=== PATIENT | female | born 1965 | race American Indian/Alaskan Native ===

== ENCOUNTER 2020-07-22 12:59 | Outpatient (CLI) | payer BC | END 2020-07-22 13:00 | disposition critical access hospital (66) | LOC: EMS 12:59 | PROVIDERS: ATTEND Surgery | DX: M54.5 Low back pain (principal) | CPT/HCPCS: A0425; A0429 ==

== ENCOUNTER 2020-07-22 13:18 | Emergency (ER) | payer BC ==
[2020-07-22 14:34] VITALS: BP 178/73
[2020-07-22] MEDS ORDERED: HYDROmorphone 1 MG/ML CARPUJECT IVP STA (14:36)
--- NOTE | 2020-07-22 14:49 | ED Physician Documentation ---
History of Present Illness - Stated complaint Stated Complaint: BACK PAIN - Chief complaint Chief Complaint: Back Pain - History of Present Illness Timing: Prior to arrival - Additonal information Additional information: 55-year-old female presents to the emergency department with persistent right hip pain. She reports that for nearly 2 weeks she has had burning in the posterior hip that radiates down the entire leg. She was seen at [facility] for similar recently and had unremarkable labs and a CT of the abdomen and pelvis that showed a nonincarcerated supraumbilical hernia. In the exam room patient is hyperventilating and panting secondary to the pain. She reports that she was taking baclofen for what they told her was likely sciatica but it has not helped and she is now out of pain medication. She denies any saddle anesthesia, no fevers. No dysuria flank pain or vomiting. Review of Systems Constitutional: reports: Reviewed and negative Eyes: reports: Reviewed and negative Ears: reports: Reviewed and negative Nose: reports: Reviewed and negative Throat: reports: Reviewed and negative Cardiac: reports: Reviewed and negative Respiratory: reports: Reviewed and negative GI: reports: Reviewed and negative : reports: Reviewed and negative Skin: reports: Reviewed and negative Musculoskeletal: reports: Back pain (sharp/burning radiates down right leg) PD PAST MEDICAL HISTORY - Past Medical History Cardiovascular: Hypertension Respiratory: Pneumonia, Other Endocrine/Autoimmune: None GI: Other : None HEENT: None Psych: None Musculoskeletal: None Derm: None - Past Surgical History Past Surgical History: Yes General: Cholecystectomy, Appendectomy, Other /PROBATION COUNSELOR: Tubal ligation - Present Medications Home Medications: Ambulatory Orders Medication Instructions Recorded Confirmed Hydrocodone/Acetaminophen 1 - 2 each PO Q6H PRN #20 tablet 01/04/16 [Hydrocodon-Acetaminophen 5-325] Valacyclovir HCl [Valacyclovir] 1,000 mg PO TID 7 Days tablet 01/04/16 Cyclobenzaprine [Flexeril] 10 mg PO TID PRN #20 tablet 07/22/20 Hydrocodone/Acetaminophen [[place] 1 each PO BID PRN #15 tablet 07/22/20 5-325 Tablet] Ibuprofen [Motrin] 600 mg PO Q6H PRN #30 tab 07/22/20 - Allergies Allergies/Adverse Reactions: Allergies Allergy/AdvReac Type Severity Reaction Status Date / Time codeine AdvReac Mild Nausea Verified 08/30/14 09:55 - Social History Does the pt smoke?: No Smoking Status: Never smoker Does the pt drink ETOH?: No Does the pt have substance abuse?: No - Immunizations Immunizations are current?: Yes - POLST Patient has POLST: No PD ED PE EXPANDED - General General: In Pain, In distress, Other (hyperventilating and panting in triage) - Cardiac Cardiac: Tachy, Regular Rhythm, Radial strong equal, Femoral strong equal, Pedal strong equal - Respiratory Respiratory: Other (hyperventilating/panting in the [place]) - Abdomen Abdomen: Normal Bowel sounds. No: Tender to palpation - Back Back: Straight leg raise + R (Tenderness in the right lower posterior back/hip without crepitus or erythema. Focal tenderness at the SI joint. Positive straight leg exam on right leg. 2+ distal pulse.) Results - Vitals Vitals: Vital Signs - 24 hr 07/22/20 07/22/20 07/22/20 13:20 13:36 14:32 Temperature 36.4 C L 36.4 C L Heart Rate 86 86 62 Respiratory 28 H 28 H 40 H Rate Blood Pressure 141/78 H 141/78 H 178/73 H O2 Saturation 99 99 99 07/22/20 14:57 Temperature Heart Rate Respiratory 18 Rate Blood Pressure O2 Saturation Oxygen O2 Source Room air - Labs Labs: Laboratory Tests 07/22/20 07/22/20 14:45 14:45 WBC 9.5 RBC 4.48 Hgb 14.1 Hct 40.3 MCV 90.0 MCH 31.5 H MCHC 35.0 RDW 12.5 Plt Count 287 MPV 9.7 Neut # (Auto) 7.0 H Lymph # (Auto) 2.1 Faulkner # (Auto) 0.4 Eos # (Auto) 0.0 Baso # (Auto) 0.0 Absolute Nucleated RBC 0.00 Nucleated RBC % 0.0 Sodium 138 Potassium 3.5 Chloride 106 Carbon Dioxide 20 L Anion Gap 12.0 BUN 11 Creatinine 0.5 Estimated GFR (MDRD) 129 Glucose 104 H Calcium 9.8 Total Bilirubin 1.0 AST 17 ALT 13 Alkaline Phosphatase 73 Total Protein 8.0 Albumin 4.9 Globulin 3.1 Albumin/Globulin Ratio 1.6 Lipase 28 PD MEDICAL DECISION MAKING - ED course Complexity details: reviewed results, re-evaluated patient, considered differential, d/w patient ED course: 55-year-old female presents to the emergency department with persistent right lower back/hip pain that has failed to resolve despite a course of baclofen at home. She was seen at [facility] for similar recently. I have reviewed those labs and CT scan that did not show anything acute. When patient presented to the emergency department she was panting very rapidly secondary to the pain. She was given 1 mg of Dilaudid following this she reported that she was now pain-free and breathing normally. Her exam is most consistent with an acute sciatica. She has not taken any ibuprofen at home because she is afraid of stomach upset but I will recommend that she take 600 mg with food 3 times a day. I will also write a prescription for Flexeril as she did not find the baclofen helpful. Finally a very minimal amount of hydrocodone will be prescribed. She will follow-up with her primary care doctor. Emergent return precautions were discussed. Departure - Departure Disposition: Home, Self Care Clinical Impression: Sciatica Qualifiers: Laterality: right Qualified Code(s): M54.31 - Sciatica, right side Condition: Stable Record reviewed to determine appropriate education?: Yes Instructions: ED Sciatica Follow-Up: Jese Singh MD [Credentialed Staff Provider] - Prescriptions: Cyclobenzaprine [Flexeril] 10 mg PO TID PRN #20 tablet PRN Reason: Spasms Ibuprofen [Motrin] 600 mg PO Q6H PRN #30 tab PRN Reason: Pain Hydrocodone/Acetaminophen [[place] 5-325 Tablet] 1 each PO BID PRN #15 tablet PRN Reason: Pain Comments: Ros I believe that the cause of your low back pain is likely sciatica. This is inflammation of the large nerve that runs from your low back down the leg. I would like you to take ibuprofen at home with food 3 times a day for the next week. This will help reduce inflammation. I have prescribed a muscle relaxer called Flexeril as well as an opiate called Vicodin or [place]. Please do not drive or work if taking either of those 2 medications. I would also like you to consider doing sciatica stretching exercises this may help with the acute low back pain. Please see your primary care doctor in follow-up in the next week. If at any point you find that your symptoms are worsening, you have numbness or tingling between your legs, have weakness in your legs or return of the severe pain please return to the emergency department
[2020-07-22 15:03] LABS: BASOPHILS % (AUTO) 0.2 %; EOSINOPHILS % (AUTO) 0.2 %; HGB - HEMOGLOBIN 14.1 g/dL (12.0-16.0); LYMPHOCYTES # (AUTO) 2.1 10^3/uL (1.5-3.5); LYMPHOCYTES % (AUTO) 21.7 %; MEAN CORPUSCULAR HEMOGLOBIN 31.5 pg (27.0-31.0); MEAN PLATELET VOLUME 9.7 fL (7.9-10.8); MONOCYTES # (AUTO) 0.4 10^3/uL (0.0-1.0); MONOCYTES % (AUTO) 3.9 %; NEUTROPHILS % (AUTO) 73.7 %; PLT - PLATELET COUNT 287 10^3/uL (130-450); RED BLOOD COUNT 4.48 10^6/uL (4.20-5.40); RED CELL DISTRIBUTION WIDTH 12.5 % (12.0-15.0); WHITE BLOOD COUNT 9.5 x10^3/uL (4.8-10.8)
[2020-07-22 15:18] LABS: ALBUMIN 4.9 g/dL (3.2-5.5); ALBUMIN/GLOBULIN RATIO 1.6 (1.0-2.2); CALCIUM 9.8 mg/dL (8.5-10.3); CREATININE 0.5 mg/dL (0.4-1.0)
--- NOTE | 2020-07-22 16:03 | XRAY Report ---
PROCEDURE: Hip w/Pelvis 1V RT INDICATIONS: righ thip pain; ? sciatica TECHNIQUE: AP pelvis with lateral view(s) of the right hip(s). COMPARISON: None. FINDINGS: Bones: No fractures or dislocations. Pelvic ring appears intact. No suspicious bony lesions. Soft tissues: The visualized bowel gas pattern is normal. No suspicious soft tissue calcifications. IMPRESSION: No fracture. No osseous lesion. If there is continued clinical concern for pathology, then advanced i maging (CT, MR, bone scan) should be considered for further evaluation. Reviewed by: Jasmyne Collins MD, PhD on 07/22/2020 4:01 PM PST Approved by: Jasmyne Collins MD, PhD on 07/22/2020 4:01 PM PST Station ID: [id number]
== END 2020-07-22 15:56 | disposition home or self-care (01) ==
LOC: EDUNIT# → ED 13:18
DX: M54.41 Lumbago with sciatica, right side (principal); R06.4 Hyperventilation; I10 Essential (primary) hypertension
CPT/HCPCS: 36415; 73501; 80053; 83690; 85025; 96374; 99284; J1170

== ENCOUNTER 2020-08-02 09:24 | Outpatient (CLI) | payer BC ==
--- NOTE | 2020-08-02 11:13 | MRI Report ---
PROCEDURE: Hip RT W/O INDICATIONS: Right hip pain TECHNIQUE: Noncontrast coronal T1 spin echo and STIR through the bony pelvis. Coronal and axial T2 fast spin ec ho with fat saturation, sagittal T1 spin echo, and oblique axial T2 fast spin echo with fat saturatio n through the hip. COMPARISON: None. FINDINGS: Image quality: Excellent. Bones and joints: Bone marrow of the pelvic ring and proximal femurs show normal signal other than m ild edema in the greater trochanter near the gluteus insertion. No intraosseous lesions or fractures. No avascular necrosis of the femoral heads. The visualized lower lumbar spine appears normally ali gned. Tendons: The gluteus medius and minimus tendons appear intact, without associated muscle atrophy. T he iliopsoas tendon appears intact, without adjacent bursal fluid collections. The origin of the ham string tendon is intact at the ischial tuberosity. Labrum and cartilage: The acetabular labrum appears intact in the absence of intra-articular contras t. Mild femoroacetabular chondromalacia. Soft tissues: Visualized muscles demonstrate normal bulk. Edema in the right distal gluteus federica near the insertion on the greater trochanter with mildly increased edema in the bone at the insertion site. The proximal sciatic neurovascular bundle appears normal adjacent to the hamstring tendons. N o free pelvic fluid. Bladder wall thickness is normal. Genitourinary structures and bowel loops amita ear normal where visualized. IMPRESSION: Right greater trochanteric bursitis with mild muscular edema near the insertional gluteus federica. Reviewed by: Franki Dodge MD on 08/02/2020 11:12 AM PST Approved by: Franki Dodge MD on 08/02/2020 11:12 AM PST Station ID: [id number]
== END 2020-08-02 09:25 | disposition home or self-care (01) ==
LOC: DI 09:24
PROVIDERS: ATTEND Family Medicine
DX: M70.61 Trochanteric bursitis, right hip (principal)

== ENCOUNTER 2020-11-27 17:41 | Outpatient (CLI) | payer BC | END 2020-11-27 17:42 | disposition home or self-care (01) | LOC: COV 17:41 | PROVIDERS: ATTEND Family Medicine | DX: Z20.822 Contact with and (suspected) exposure to COVID-19 (principal) ==